=== PATIENT | female | born 1995 | race Hispanic/Latino ===

== ENCOUNTER 2021-06-18 09:43 | Emergency (ER) | payer SELFPAY | END 2021-06-18 10:28 | disposition home or self-care (01) | LOC: CSHERS 09:43 | DX: O99.891 Other specified diseases and conditions complicating pregnancy (principal); M54.6 Pain in thoracic spine; W19.XXXA Unspecified fall, initial encounter; Z3A.01 Less than 8 weeks gestation of pregnancy ==

== ENCOUNTER 2022-01-27 11:15 | Outpatient (CLI) | payer OTHER | END 2022-01-27 11:16 | disposition home or self-care (01) | LOC: CSHLAB 11:15 | PROVIDERS: ATTEND Advanced Practice Midwife | DX: Z20.822 Contact with and (suspected) exposure to COVID-19 (principal) | CPT/HCPCS: 87811 ==

== ENCOUNTER 2022-02-01 05:30 | Inpatient (IN) | payer MEDICAID, OTHER, SELFPAY ==
[2022-02-01] MEDS ORDERED: Misoprostol 200 MCG TAB PR PRN (05:37)
[2022-02-01] MEDS ORDERED: Ondansetron PF 4 MG/2 ML Vial IVP PRN ×3 (05:37→18:41)
[2022-02-01] MEDS ORDERED: Lidocaine 1% (PF) 30 ML VIAL SC PRN (05:37)
[2022-02-01] MEDS ORDERED: hydrALAZINE 20 MG/ML VIAL SLOW IVP PRN ×2 (05:37→18:41)
[2022-02-01] MEDS ORDERED: Ibuprofen 800 MG TAB PO PRN (05:37)
[2022-02-01] MEDS ORDERED: HYDROcodone/Acetaminophen 5/325 mg Tablet PO PRN ×3 (05:37→18:41)
[2022-02-01] MEDS ORDERED: Promethazine HCl 25 MG/ML VIAL IM PRN ×2 (05:37→10:22)
[2022-02-01] MEDS ORDERED: Butorphanol Tartrate 1 MG/ML VIAL SLOW IVP PRN (05:37)
[2022-02-01] MEDS ORDERED: Methylergonovine 0.2 MG/ML VIAL IM PRN ×2 (05:37→18:41)
[2022-02-01] MEDS ORDERED: Acetaminophen 500 MG TAB PO PRN (05:37)
[2022-02-01] MEDS ORDERED: NS w/ Oxytocin 30 units 500 ML IV SCH ×3 (05:45→18:41)
[2022-02-01] MEDS ORDERED: Penicillin G Potassium 5 MILL.UNITS in Sodium Chloride 0.9% 100 ML IVPB SCH (07:45)
[2022-02-01] MEDS: Lactated Ringer's 1,000 ML IV SCH ×2 (08:20→18:48)
[2022-02-01 08:56] LABS: Hemoglobin 11.5 g/dL (12.0-15.5); Mean Corpuscular HGB CONC 34.2 g/dL (32.0-36.0); Mean Corpuscular Hemoglobin 30.2 pg (27.0-33.0); Mean Corpuscular Volume 88.2 fl (81.6-98.3); Mean Platelet Volume 11.5 fl (7.4-10.4); Platelet Count 235 10x3/uL (150-450); RBC Distribution Width 15.2 % (11.5-14.5); Red Blood Cell (RBC) Count 3.81 10x6/uL (3.90-5.03); White Blood Cell (WBC) Count 7.8 10x3/uL (3.5-10.5)
[2022-02-01 09:21] LABS: Hep B Surf Ag Non-Reactive S/CO (NonReactive)
[2022-02-01 09:22] LABS: Syphilis Antibody Nonreactive (Nonreactive); Syphilis Antibody Index 0.03 S/CO (<1.00 Non-Reactive)
[2022-02-01] MEDS ORDERED: Fentanyl 2 mcg/Bup 0.1% Cadd 100 ML ONE (10:10)
[2022-02-01] MEDS ORDERED: Naloxone HCl 0.4 mg/ml Vial IVP PRN ×2 (10:22)
[2022-02-01] MEDS ORDERED: Lactated Ringer's 500 ML IV PRN (10:22)
[2022-02-01] MEDS ORDERED: Acetaminophen 325 MG TAB PO PRN (10:22)
[2022-02-01] MEDS ORDERED: ePHEDrine Sulfate 50 MG/10 ML VIAL SLOW IVP PRN (10:22)
[2022-02-01] MEDS ORDERED: Moisturizing Cream (Eucerin) 113 GM JAR TOP PRN (10:22)
[2022-02-01] MEDS ORDERED: diphenhydrAMINE 50 MG/ML VIAL IVP PRN (10:22)
[2022-02-01] MEDS ORDERED: Fentanyl 2 mcg/Bupivacaine 0.1% Cassette 100 ML EPIDURAL SCH (10:30)
[2022-02-01] MEDS ORDERED: Communication Order-Pharmacy FS SCH (10:30)
[2022-02-01 11:36] VITALS: BMI 25.6
[2022-02-01] MEDS: Penicillin G 2.5 MILL.units 2.5 MILL.UNITS in Premix Bag 1 BAG IVPB SCH ×2 (13:04→18:48)
[2022-02-01] MEDS ORDERED: Phytonadione Neonatal 1 MG/0.5 ML AMP ONE (16:34)
[2022-02-01] MEDS ORDERED: Erythromycin Base 0.5% Oint 1 GM TUBE ONE (16:34)
[2022-02-01] MEDS ORDERED: Hepatitis B Vaccine 10 MCG/0.5 ML SYR ONE (16:34)
[2022-02-01] MEDS ORDERED: Preparation H Ointment 28 GM TUBE PR PRN (18:41)
[2022-02-01] MEDS ORDERED: Misoprostol 200 MCG TAB VAG PRN (18:41)
[2022-02-01] MEDS ORDERED: Milk Of Magnesia 30 ML UDCUP PO PRN (18:41)
[2022-02-01] MEDS ORDERED: diphenhydrAMINE 25 MG CAP PO PRN (18:41)
[2022-02-01] MEDS ORDERED: Benzocaine-Menthol 82.5 ML CAN TOP PRN (18:41)
[2022-02-01] MEDS ORDERED: Lanolin Ointment 7 GM TUBE TOP PRN (18:41)
[2022-02-01] MEDS ORDERED: Bisacodyl 10 MG SUPP PR PRN (18:41)
[2022-02-01] MEDS ORDERED: Ferrous Sulfate 325 MG TAB PO SCH (19:00)
[2022-02-01] MEDS: Docusate 100 MG CAP PO SCH (21:15)
[2022-02-01] MEDS: Ibuprofen 800 MG TAB PO SCH (21:15)
[2022-02-02] MEDS: Ibuprofen 800 MG TAB PO SCH ×2 (05:28→13:53)
[2022-02-02] MEDS ORDERED: Bupivacaine/Epinephrine 0.25% 30 ML VIAL ONE (07:00)
[2022-02-02] MEDS ORDERED: Ferrous Sulfate 325 MG TAB PO SCH (08:00)
[2022-02-02 08:11] VITALS: BP 98/59; TEMP 98.4
[2022-02-02] MEDS ORDERED: Prenatal Vitamin 1 TAB PO SCH (09:00)
[2022-02-02] MEDS: Docusate 100 MG CAP PO SCH (09:11)
== END 2022-02-02 17:50 | disposition home or self-care (01) | DRG 807 ==
LOC: CSHLD 07:37 → CSHPP 18:25
PROVIDERS: ADMIT Obstetrics & Gynecology; ATTEND Obstetrics & Gynecology
PROC: 10E0XZZ Delivery of Products of Conception, External Approach (ICD-10-PCS; principal; 2022-02-01)
DX: O36.5930 Maternal care for other known or suspected poor fetal growth, third trimester, not applicable or unspecified (principal); Z37.0 Single live birth; Z3A.39 39 weeks gestation of pregnancy; O99.824 Streptococcus B carrier state complicating childbirth; D50.9 Iron deficiency anemia, unspecified; O99.02 Anemia complicating childbirth; J45.909 Unspecified asthma, uncomplicated; O99.52 Diseases of the respiratory system complicating childbirth
CPT/HCPCS: 36415; 51702; 85027; 86780; 86850; 86870; 86900; 86901; 86905; 86922; 87340; J2540; J2590; J3490; J7120

== ENCOUNTER 2022-09-21 11:31 | Emergency (ER) | payer MEDICAID, SELFPAY ==
[2022-09-21 13:50] LABS: SARS-CoV-2 NAA Rapid Test Not Detected (NotDetected)
== END 2022-09-21 14:20 | disposition home or self-care (01) ==
LOC: CSHERS 11:31
DX: J02.0 Streptococcal pharyngitis (principal); Z20.822 Contact with and (suspected) exposure to COVID-19
CPT/HCPCS: 87430; 99283